=== PATIENT | female | born 1955 | race Caucasian/White ===

== ENCOUNTER 2020-08-01 15:37 | Outpatient (CLI) | payer OTHER, SELFPAY ==
--- NOTE | ~2020-08-01 | MM_ITS ---
EXAMINATION: MM screening bethanie BI w lillie HISTORY: Screening mammogram TECHNIQUE: Craniocaudal and mediolateral oblique 3-D tomosynthesis images were obtained and synthetic 2-D images were generated. Bilateral rotated lateral cc views. CAD analysis was submitted and interp reted. COMPARISON: 08/28/2019, 07/19/2018, 07/01/2017 bilateral digital screening mammogram examinations BREAST PARENCHYMAL COMPOSITION: The breasts are heterogeneously dense, which may obscure small masses . FINDINGS: Bilateral benign calcifications. There is no evidence of suspicious mass, calcification, or architectural distortion to suggest malignancy in either breast. There has been no suspicious interv al change. IMPRESSION: 1. No mammographic evidence of malignancy. 2. Recommend routine screening mammography in one year. BI-RADS Category 2: Benign finding(s). Reviewed, dictated and finalized at location A. RESPIRATORY
== END 2020-08-01 15:38 | disposition home or self-care (01) ==
PROVIDERS: PCP Family Medicine Adolescent Medicine; Visit Provider Family Medicine Adolescent Medicine
DX: Z12.31 Encounter for screening mammogram for malignant neoplasm of breast (principal)
CPT/HCPCS: 77063; 77067

== ENCOUNTER 2020-11-15 07:26 | Outpatient (CLI) | payer OTHER, MEDICARE, SELFPAY ==
--- NOTE | ~2020-11-15 | XR_ITS ---
EXAMINATION: XR hand LT 2V DATE: 11/15/2020 07:48 INDICATION: Left hand pain at the base of the thumb. TECHNIQUE: 2 views of left hand were obtained. COMPARISON: None. FINDINGS: Bone alignment is normal. No fracture. There is mild osteoarthritis of first carpometacarpa l joint, second proximal interphalangeal joint, and second, third, and fifth distal interphalangeal j oints. IMPRESSION: 1. Mild polyarticular osteoarthritis. Reviewed, dictated and finalized at location A.
== END 2020-11-15 07:27 | disposition home or self-care (01) ==
LOC: ANHIMG 07:33
PROVIDERS: PCP Family Medicine Adolescent Medicine; Visit Provider Family Medicine Adolescent Medicine
DX: M19.042 Primary osteoarthritis, left hand (principal)
CPT/HCPCS: 73120

== ENCOUNTER 2021-03-12 16:24 | Observation (INO) | payer OTHER, MEDICARE, SELFPAY ==
[2021-03-12] VITALS (26 sets, daily range): BP systolic 112–182; BP diastolic 63–110; PULSE 58–97; RESP 10–20; TEMP 36.5–36.8; O2SAT 95–99; BMI 22.5
--- NOTE | ~2021-03-12 | XR_ITS ---
EXAMINATION: XR chest 2V DATE: 03/12/2021 16:59 INDICATION: Midsternal chest pain. Hypertension. TECHNIQUE: PA and lateral views of the chest were obtained. COMPARISON: None FINDINGS: The lungs are clear with no focal airspace opacities, pulmonary edema, pleural effusion or pneumothor ax. The cardiomediastinal silhouette is normal. Mild to moderate thoracic spondylosis with chronic ap pearing minimal to mild anterior wedging of a few mid thoracic vertebral bodies. IMPRESSION: 1. No acute cardiopulmonary disease. Reviewed, dictated and finalized at location A.
--- NOTE | 2021-03-12 16:26 | ECG_ITS ---
Measurements Intervals [place] Rate: 87 P: 70 VT: 150 QRS: 30 QRSD: 76 T: 36 QT: 351 QTc: 424 Interpretive Statements SINUS RHYTHM POSSIBLE RIGHT ATRIAL ENLARGEMENT LEFT ATRIAL ENLARGEMENT INCOMPLETE RIGHT BUNDLE BRANCH BLOCK ST ABNORMALITY IN ANTEROLAT/INF LEADS- CONSIDER ISCHEMIA ABNORMAL ECG Electronically Signed On 03-12-2021 21:09:09 CDT by Gilmar Moreau D.O.
[2021-03-12 16:56] LABS: Basophils Percent Auto 0.2 % (0.2-1.2); Eosinophils Absolute Auto 0.2 K/mm3 (0-0.3); Eosinophils Percent Auto 1.5 % (0-4.4); Hematocrit 38.9 % (37.0-47.0); Hemoglobin 13.1 g/dL (12.0-15.0); Immature Granulocyte Absolute 0.03 K/mm3 (0.00-0.031); Immature Granulocyte Percent A 0.3 % (0-0.5); Lymphocytes Absolute Auto 2.23 K/mm3 (0.9-3.2); Lymphocytes Percent Auto 22.9 % (18.3-44.2); Mean Corpuscular HGB Conc 33.7 g/dl (32-36); Mean Corpuscular Hemoglobin 29.8 pg (26-34); Mean Corpuscular Volume 88.4 fl (80-100); Mean Platelet Volume 11.2 fl (7.4-10.4); Monocytes Absolute Auto 0.7 K/mm3 (0.1-0.6); Monocytes Percent Auto 7.1 % (2.6-8.5); Neutrophils Absolute Auto 6.6 K/mm3 (1.3-6.7); Platelet Count Result 294 k/mm3 (150-375); Red Cell Distribution Width 12.4 % (11.5-14.5); White Blood Count 9.7 K/mm3 (4.5-10.0)
[2021-03-12 17:05] LABS: Anion Gap 11 mmol/L (8-16); Blood Urea Nitrogen 18 mg/dL (7-17); Calcium 11.3 mg/dL (8.4-10.2); Carbon Dioxide 26 mmol/L (22-30); Chloride 103 mmol/L (98-107); Estimated CRCL calculation 53 ml/min; Estimated Glomerular Filt Rate > 60; Glucose 116 mg/dL (65-105); Potassium 3.8 mmol/L (3.4-5.0); Sodium 140 mmol/L (137-145)
[2021-03-12 17:17] LABS: Troponin I < 0.012 ng/mL (0.000-0.034)
[2021-03-12] MEDS: ASPIRIN 81 MG CHEWABLE TABLET 324 MG PO (17:21)
[2021-03-12] MEDS: METOPROLOL TARTRATE INJ 5 MG/5 ML VIAL IV PUSH (17:21)
--- NOTE | 2021-03-12 17:27 | ED.CHESTPAIN ---
HPI - Chest Pain General Chief Complaint: Chest Pain Stated Complaint: HEARTBURN, ELEVATED BP Time Seen by Provider: 03/12/21 16:31 Source: patient Mode of arrival: ambulatory Limitations: no limitations History of Present Illness HPI narrative: 65-year-old with a H/O of Hyperlipidemia ,HTN but not on any medication here with complaints of midsternal heartburn for past few days. She states is episodic in nature. Patient states that she has taken Tums with minimal relief. She denies any shortness of breath, nausea or vomiting. No previous history of any coronary artery disease. Never had a stress test. complaint: chest pain Onset (ago): day(s) (3) Timing of current episode: episodic Onset: during rest Pain location: substernal Pain radiation: none Severity: moderate Quality: burning Relieving factors: nothing Exacerbating factors: nothing Risk Factors Coronary artery disease risk factors: none Related Data Home Medications Medication Instructions Recorded Confirmed alprazolam 0.5 mg tablet 0.5 mg PO DAILY 12/03/20 12/03/20 atorvastatin 20 mg tablet 20 mg PO DAILY 12/03/20 12/03/20 calcium carbonate 600 mg calcium 600 mg PO BID 12/03/20 12/03/20 (1,500 mg) tablet multivitamin with minerals-folic tablet PO 12/03/20 12/03/20 acid 0.4 mg tablet Allergies Allergy/AdvReac Type Severity Reaction Status Date / Time No Known Allergies Allergy Verified 03/12/21 16:38 Review of Systems Review of Systems: All systems reviewed & are unremarkable except as noted in HPI and below Constitutional: Constitutional: Reports no additional constitutional complaints Eyes: Eyes: Reports no additional eye complaints ENT: Reports system reviewed and no additional complaints, except as documented Cardiovascular: Cardiovascular: Reports as per HPI Respiratory: Respiratory: Reports no additional respiratory complaints Gastrointestinal: Gastrointestinal: Reports no additional gastrointestinal complaints Musculoskeletal: Musculoskeletal: Reports no additional musculoskeletal complaints Neurologic: Reports system reviewed and no additional complaints, except as documented Psychiatric: Psychiatric: Reports no additional psychiatric complaints [facility] Past Medical History Medical History Anxiety Arthritis Arthritis of carpometacarpal (CMC) joint of left thumb Surgical History Surgical History H/O: hysterectomy Family History Family History Mother Family history of amyotrophic lateral sclerosis Sibling Breast cancer Hypertension Cerebrovascular accident Father Hypertension Social History Social History Smoking status: Never smoker Alcohol intake: current Additional occupation/education comments: [employer] Gender identity (if verbalized by the patient): Female Exam Narrative: Exam Narrative: GENERAL: Well-appearing, well-nourished, and in no acute distress. HEAD: Normocephalic, atraumatic. EYES: PERRLA and EOMI. NECK: Supple. CHEST: Clear to auscultation. No respiratory distress. HEART: Regular rate and rhythm. No murmur heard. Normal peripheral pulses. ABDOMEN: Soft, nontender, nondistended, normal active bowel sounds. EXTREMITIES: Normal range of motion. No edema. SKIN: Warm, dry, no rash. NEURO: No focal deficits. Alert and oriented x3. PSYCH: Normal mood and affect. Course Course Emergency Course: Patient presently not having pain at this time. I discussed lab work with the patient and the family will admit to the hospital for further work-up. Vital Signs Vital signs: Vital Signs Temperature 36.7 C 03/12/21 16:28 Pulse Rate 97 03/12/21 16:28 Respiratory Rate 14 03/12/21 16:28 Blood Pressure 173/89 H 03/12/21 16:28 Pulse Oximetry 99 03/12/21 16:28
[2021-03-12 17:40] LABS: Prothrombin Time 12.7 Seconds (11.1-14.7)
[2021-03-12 17:42] LABS: Partial Thromboplastin Time 26.7 SECONDS (22.3-36.8)
[2021-03-12] MEDS: ENOXAPARIN 80 MG/0.8 ML SYRINGE 65 MG SUB-Q (18:18)
[2021-03-12] MEDS: NITROGLYCERIN OINTMENT 1 INCH DOSE TRANSDERM (18:18)
[2021-03-12 20:05] LABS: Troponin I < 0.012 ng/mL (0.000-0.034)
--- NOTE | 2021-03-12 21:00 | PM.IMHP ---
H&P: HPI History of Present Illness Date/Time: 03/12/21 21:00 <Deya Jensen PA-C - Last Filed: 03/12/21 23:02> Chief Complaint: Chest pain. <Deya Jensen PA-C - Last Filed: 03/12/21 23:02> Narrative: This is a pleasant 65-year-old female with hyperlipidemia and GERD who presented to the emergency department earlier today via private vehicle from home for evaluation of chest pain. Yesterday at lunch she started to experience what she thought was heartburn, describing tightness in the mid chest region and burning up into the jaw. She took Tums and it seemed to improve within a couple of minutes. Not long thereafter she felt as though her blood pressure was high and she went to [employer] [facility] where her blood pressure was 182/80. She then left work a bit early and went home to rest. Throughout the evening she monitored her blood pressure and it was near normal by bedtime. This morning her blood pressures was 137/80 and she felt okay when she came in to work. Throughout the morning she had intermittent episodes of what she calls heartburn but again she describes midsternal chest tightness with some burning radiation up into the jaw. She has been taking Tums every 3 hours since yesterday for these symptoms and admits that she probably took more than what is suggested this afternoon due to her symptoms. By the time she got home this afternoon her symptoms were pretty severe and she checked her blood pressure which was once again high thus she came in to the ER for evaluation. Since arrival to the hospital her blood pressures have been in the 150s to 180s systolic but she denies history of hypertension. Two years ago she had a similar episode where her blood pressures spiked for a week or so before returning back to normal. She has had 2 negative troponins thus far however her EKG is concerning for ischemia with ST abnormalities in the anterior lateral and inferior leads. She was started on nitro paste in the emergency department and her symptoms have been essentially absent aside from a brief minute of tightness this evening. She has never had similar symptoms in the past and fact she is quite healthy and very active, walking 2 miles most days of the week without ever having chest pain or shortness of breath. She denies headache, syncope, near syncope, exertional chest pain, shortness of breath, nausea, vomiting, and sweats. She has no known history of coronary artery disease and has never had a stress test. <Deya Jensen PA-C - Last Filed: 03/12/21 23:02> Review of Systems Review of Systems: Narrative: 12 systems were reviewed with pertinent positives and negatives as per HPI. No fever, chills, or sweats. No recent cold or flu symptoms. She has vaccinated for COVID-19. He typically does not get heartburn very often. She has not had issues with dysphagia however felt like she was having a difficult time swallowing the turkey sandwich she had for dinner tonight. No concerns for aspiration. No orthopnea, PND, or lower extremity edema. She has had normal bowel movements. No recent change in stressed. She does not take supplements. She avoids caffeine. Except as documented, all other systems were reviewed and are negative. <Deya Jensen PA-C - Last Filed: 03/12/21 23:02> [facility] Past Medical History Medical History: Medical History Anxiety Arthritis Dyslipidemia Gastroesophageal reflux disease <Deya Jensen PA-C - Last Filed: 03/12/21 23:02> Surgical History Surgical History: Surgical History History of hysterectomy History of tubal ligation <Deya Jensen PA-C - Last Filed: 03/12/21 23:02> Family History Family History: Family History Mother Family history of amyotrophic lateral sclerosis Sibling Breast cancer Hypertensio
[2021-03-12 23:09] LABS: Troponin I < 0.012 ng/mL (0.000-0.034)
[2021-03-13] VITALS (11 sets, daily range): BP systolic 109–142; BP diastolic 63–79; PULSE 60–75; RESP 12–16; TEMP 36.4–36.9; O2SAT 96–100
--- NOTE | 2021-03-13 01:08 | ADMGEN ---
This patient, Aretha Peralta, was admitted to IMU Room 207-01. Patient/family oriented to hospital policies and general routines including ID bracelet, bed and alarms, visiting hours, pain management, procedures, bathroom and other care routines, personal items, smoking policy, room service/diet, and visiting hours. Information on how to activate the Rapid Response Team has been discussed. Patient/Family are encouraged to report perceived risks to care and to ask questions if they do not understand what they are told or what they should do. 03/13/2021 1900
[2021-03-13 05:13] LABS: Hematocrit 38.8 % (37.0-47.0); Hemoglobin 12.5 g/dL (12.0-15.0); Mean Corpuscular HGB Conc 32.2 g/dl (32-36); Mean Corpuscular Hemoglobin 29.7 pg (26-34); Mean Corpuscular Volume 92.2 fl (80-100); Mean Platelet Volume 11.2 fl (7.4-10.4); Platelet Count Result 246 k/mm3 (150-375); Red Blood Count 4.21 M/mm3 (4.2-5.4); Red Cell Distribution Width 12.7 % (11.5-14.5); White Blood Count 8.3 K/mm3 (4.5-10.0)
[2021-03-13 05:29] LABS: Alanine Aminotransferase 36 U/L (4-35); Albumin Level 4.4 g/dL (3.5-5.1); Alkaline Phosphatase 73 U/L (38-126); Anion Gap 9 mmol/L (8-16); Aspartate Amino Transferase 33 U/L (14-36); Bilirubin,Total 0.6 mg/dL (0.2-1.3); Blood Urea Nitrogen 15 mg/dL (7-17); Carbon Dioxide 30 mmol/L (22-30); Chloride 104 mmol/L (98-107); Cholesterol 145 mg/dL (0-200); Estimated CRCL calculation 48 ml/min; Estimated Glomerular Filt Rate > 60; Glucose 87 mg/dL (65-105); HDL Direct 51 mg/dL; Magnesium 1.8 mg/dL (1.6-2.3); Sodium 143 mmol/L (137-145); Triglycerides 104 mg/dL (<150)
[2021-03-13 05:40] LABS: LDL Cholesterol Direct 62 mg/dL
[2021-03-13] MEDS: METOPROLOL TARTRATE 25 MG TABLET PO (08:27)
[2021-03-13] MEDS: ASPIRIN 81 MG CHEWABLE TABLET PO (08:27)
--- NOTE | 2021-03-13 09:16 | PM.CNCAR ---
Assessment and Plan Additional Plan 1- chest pain. 2- abnormal EKG. 3- uncontrolled hypertension. this 65-year-old female who presents to the hospital with chest pain. Blood pressure is elevated on admission. She does not take blood pressure medications at home. Her EKG shows ST depression inferior and lateral leads suggestive of ischemia. Troponins negative. Recommend a Lexiscan stress test to rule out ischemia.. Recommend to start low-dose losartan 25 mg daily to treat hypertension. ask patient to keep blood pressure log. History of Present Illness History of Present Illness Consult date/time: Date of service: 03/13/21 09:16 Requesting physician: Hamzah Silveira MD Consult reason: chest pain Reason For Visit: Unstable Angina Narrative: This 65-year-old female with past medical history of hyperlipidemia. blood pressure is elevated in admissions 160s to 170s systolic. she presents to the hospital because of 24 hours feeling of severe Central chest heart burn, shakiness. she was taking Tums without relief. could not sit down. denies shortness of breath, limb edema, dizziness, syncope. Her blood pressures were elevated. She denies recent stress, salty food intake. denies orthopnea or paroxysmal nocturnal dyspnea. she states that for the last 3 months she has been getting intermittent heartburn with no aggravating or relieving factor. in the past she was evaluated for hypertension and blood pressures were slightly elevated but then upon following blood pressure her blood pressure was normal and did not require medications. she reports her brother who is age 60 had myocardial infarction. Never smoke cigarettes and does not drink alcohol. serum creatinine 0.9, troponins x3 negative, EKG reviewed and as myself shows sinus rhythm, ST depressions inferior and lateral leads. Chest x-ray Interpreted and reviewed myself looks unremarkable. Review of Systems Constitutional: Constitutional: Denies chills, Denies fever(s) and Denies poor appetite Eyes: Eyes: Denies eye discharge, Denies loss of vision, Denies eye pain and Denies photophobia ENT: Denies dizziness, Denies epistaxis, Denies nasal congestion and Denies sore throat Cardiovascular: Cardiovascular: Reports chest pain, Denies syncope, Denies pedal edema, Denies leg edema, Denies palpitations, Denies dyspnea, Denies dyspnea on exertion and Denies orthopnea Respiratory: Respiratory: Denies cough, Denies dyspnea, Denies dyspnea on exertion and Denies wheezing Gastrointestinal: Gastrointestinal: Denies abdominal pain, Denies diarrhea, Denies nausea and Denies vomiting Genitourinary: Genitourinary: Denies hematuria, Denies genital lesions and Denies dysuria Musculoskeletal: Musculoskeletal: Denies arthralgias, Denies joint swelling and Denies numbness Integumentary/Breasts: Skin/Breast: Denies pruritus and Denies rash Neurologic: Denies dizziness, Denies syncope, Denies loss of vision and Denies numbness Psychiatric: Psychiatric: Denies anxiety and Denies depression Endocrine: Endocrine: Denies cold intolerance, Denies heat intolerance and Denies palpitations Hematologic/Lymphatic: Hematologic/Lymphatic: Denies easy bleeding and Denies easy bruising Allergic/Immunologic: Allergic/Immunologic: Denies urticaria and Denies wheezing PMFSH Past Medical History Medical History Anxiety Arthritis Dyslipidemia Gastroesophageal reflux disease Surgical History Surgical History History of hysterectomy History of tubal ligation Family History Family History Mother Family history of amyotrophic lateral sclerosis Sibling Breast cancer Hypertension Cerebrovascular accident Father Hypertension Sibling Acute myocardial infarction, Onset Age: 60 Social History Social History (Reviewed 03/13/21 @
[2021-03-13] MEDS: LOSARTAN POTASSIUM 12.5 MG TABLET PO (11:46)
--- NOTE | 2021-03-13 14:55 | PM.DS ---
DS: Admitting Diagnosis Admitting Diagnosis Admitting Diagnosis: chest pain DS: Discharge Diagnosis Discharge Diagnosis (1) Gastroesophageal reflux disease: Code(s): K21.9 - Gastro-esophageal reflux disease without esophagitis Status: Acute (2) Hypercalcemia: Code(s): E83.52 - Hypercalcemia Status: Acute (3) Chest pain: Code(s): R07.9 - Chest pain, unspecified Status: Acute (4) Dyslipidemia: Code(s): E78.5 - Hyperlipidemia, unspecified Status: Acute (5) Abnormal EKG: Code(s): R94.31 - Abnormal electrocardiogram [ECG] [EKG] Status: Acute (6) Hypertension: Code(s): I10 - Essential (primary) hypertension Status: Acute DS: Summary Hospital Course Hospital Course: This is a pleasant 65-year-old female with hyperlipidemia and GERD who presented to the emergency department earlier today via private vehicle from home for evaluation of chest pain. Yesterday at lunch she started to experience what she thought was heartburn, describing tightness in the mid chest region and burning up into the jaw. She took Tums and it seemed to improve within a couple of minutes. Not long thereafter she felt as though her blood pressure was high and she went to [facility] where her blood pressure was 182/80. She then left work a bit early and went home to rest. Throughout the evening she monitored her blood pressure and it was near normal by bedtime. This morning her blood pressures was 137/80 and she felt okay when she came in to work. Throughout the morning she had intermittent episodes of what she calls heartburn but again she describes midsternal chest tightness with some burning radiation up into the jaw. She has been taking Tums every 3 hours since yesterday for these symptoms and admits that she probably took more than what is suggested this afternoon due to her symptoms. By the time she got home this afternoon her symptoms were pretty severe and she checked her blood pressure which was once again high thus she came in to the ER for evaluation. Since arrival to the hospital her blood pressures have been in the 150s to 180s systolic but she denies history of hypertension. Two years ago she had a similar episode where her blood pressures spiked for a week or so before returning back to normal. She has had 2 negative troponins thus far however her EKG is concerning for ischemia with ST abnormalities in the anterior lateral and inferior leads. She was started on nitro paste in the emergency department and her symptoms have been essentially absent. She has never had similar symptoms in the past and fact she is quite healthy and very active, walking 2 miles most days of the week without ever having chest pain or shortness of breath. She denies headache, syncope, near syncope, exertional chest pain, shortness of breath, nausea, vomiting, and sweats. She has no known history of coronary artery disease and has never had a stress test. she was admitted for further evaluation and cardiology consultation. Serial troponins were done which came back negative. Chest x-ray was negative for any acute cardiopulmonary disease. She was evaluated by Cardiology and suggested starting a low-dose losartan 12.5 mg for hypertension. She was advised to get a Lexiscan stress test which could be done as an outpatient basis and hands was released by the Cardiology to go home with planned to perform a stress test as an outpatient basis. She was given losartan 12.5 mg during the hospital stay and her blood pressure remained stable. She is advised to watch her blood pressure at home and make a log. She will follow-up with primary care as well as cardiology as planned. For her GERD which has been an ongoing issue I have advised her to start Pepcid once a day. Status at Discharge Functional status at discharge: independent ambulation Overall status at discharge: patient is back to baseline Time Spent with Patient Ti
== END 2021-03-13 17:36 | disposition home or self-care (01) ==
LOC: ANHED 17:40 → ANHIMU 18:34
PROVIDERS: Emergency Medicine; Physician Assistant; Admitting Provider Internal Medicine; Emergency Provider Family Medicine; PCP Family Medicine Adolescent Medicine; Visit Provider Internal Medicine
DX: K21.9 Gastro-esophageal reflux disease without esophagitis (principal); E83.52 Hypercalcemia; R07.9 Chest pain, unspecified; E78.5 Hyperlipidemia, unspecified; R94.31 Abnormal electrocardiogram [ECG] [EKG]; I10 Essential (primary) hypertension; F41.9 Anxiety disorder, unspecified; Z87.891 Personal history of nicotine dependence
CPT/HCPCS: 36415; 71046; 80048; 80053; 80061; 83735; 84484; 85025; 85027; 85610; 85730; 93005; 96372; 96374; 99285; A9270; G0378; J1650

== ENCOUNTER 2021-03-21 10:04 | Outpatient (CLI) | payer OTHER, MEDICARE, SELFPAY ==
--- NOTE | 2021-03-21 | EST_ITS ---
Patient Info Name: Aretha Peralta Age: 65 years : 1955 Gender: Female Ht: 64 in Wt: 140 lbs BSA: 1.70 m2 Exam Date: 03/21/2021 11:17 AM Exam Location: [facility] Stress Patient Status: Outpatient Admit Date: 03/21/2021 Staff Ordering Physician: Sandie Westbrook Attending Provider: Sandie Westbrook Exercise Technologist: Tiffanie Hernandez RDCS Exercise Physician: Gilmar Moreau DO Exam Type: CA stress santos w NM Study Info Indications R07.9 - Chest pain, unspecified A regadenoson stress test was performed. Summary 1. 1. Negative lexiscan stress test for ischemic ST changes by ECG criteria. 2. 2. Baseline hypertension. 3. 3. Nuclear scan to follow and will be reported separately. Please correlate with it. 4. 4. Patient informed of the above results. Protocol: Lexiscan Stress ECG Details Stage: REST Duration (min): 16 min : 42 sec HR (bpm): 65 SBP (mmHg): 146 DBP (mmHg): 81 Stage: REST Duration (min): 21 min : 31 sec HR (bpm): 69 SBP (mmHg): 146 DBP (mmHg): 81 Stage: STAGE 1 Duration (min): 1 min : 0 sec HR (bpm): 100 SBP (mmHg): 147 DBP (mmHg): 92 Stage: RECOVERY Duration (min): 1 min : 0 sec HR (bpm): 116 SBP (mmHg): 164 DBP (mmHg): 91 Stage: RECOVERY Duration (min): 2 min : 0 sec HR (bpm): 108 SBP (mmHg): 164 DBP (mmHg): 91 Stage: RECOVERY Duration (min): 3 min : 0 sec HR (bpm): 101 SBP (mmHg): 141 DBP (mmHg): 86 Stage: RECOVERY Duration (min): 4 min : 0 sec HR (bpm): 100 SBP (mmHg): 141 DBP (mmHg): 86 Stage: RECOVERY Duration (min): 5 min : 0 sec HR (bpm): 97 SBP (mmHg): 118 DBP (mmHg): 84 Stage: RECOVERY Duration (min): 6 min : 0 sec HR (bpm): 88 SBP (mmHg): 118 DBP (mmHg): 84 Stage: RECOVERY Duration (min): 7 min : 0 sec HR (bpm): 88 SBP (mmHg): 117 DBP (mmHg): 79 Stage: RECOVERY Duration (min): 8 min : 0 sec HR (bpm): 84 SBP (mmHg): 117 DBP (mmHg): 79 Stage: RECOVERY Duration (min): 8 min : 46 sec HR (bpm): 93 SBP (mmHg): 125 DBP (mmHg): 76 Rest HR: 69 bpm Peak HR: 119 bpm Rest Sys BP: 146 mmHg Peak Sys BP: 164 mmHg Max Pred HR: 153 bpm % Max Pred HR: 78 % Target HR: 130 bpm Max RPP: 19,516 bpm*mmHg Termination Reason: Completed protocol Cardiac Symptoms: Shortness of breath Total Time: 1 min : 0 sec Rest Samano BP: 81 mmHg Peak Samano BP: 91 mmHg Total Dose: 0.4 mg Resting ECG Sinus rhythm. Stress ECG Borderline ST abnormality in anterolat/inf leads. Arrhythmias None. Report Signatures
--- NOTE | ~2021-03-21 | NM_ITS ---
EXAMINATION: NM santos stress w perfusion DATE: 03/21/2021 12:42 INDICATION: Acute chest pain TECHNIQUE: Rest images were obtained following intravenous administration of 9.5 mCi Tc99m tetrofosmi n (Myoview). The patient was infused intravenously with Lexiscan (Regadenoson). Then, 28.8 mCi Tc99m tetrofosmin (Myoview) was administered intravenously, and stress images were obtained. Data was recon structed into short axis and horizontal and vertical long axis SPECT images. Gated SPECT images were also obtained. COMPARISON: None. FINDINGS: There is no definite reversible or fixed perfusion abnormality to suggest ischemia or infar ction. There is normal left ventricular chamber size, wall motion and ejection fraction. Left ventr icular ejection fraction measures >70%. IMPRESSION: 1. Normal myocardial perfusion at rest and during stress. 2. Left ventricular ejection fraction measuring >70%. Reviewed, dictated and finalized at location A.
--- NOTE | 2021-03-21 11:56 | PCCARD ---
YANELY STRESS TEST PERFORMED BY DR. YAO PER [facility] . DR. JEFFERSON WAS IN A PROCEDURE AND NO OTHER HEART CARE GROUP DOCTOR WAS AVAILABLE TO PERFORM PATIENTS STRESS TEST.
== END 2021-03-21 10:05 | disposition home or self-care (01) ==
PROVIDERS: PCP Family Medicine Adolescent Medicine; Visit Provider Nurse Practitioner
DX: R07.9 Chest pain, unspecified (principal)
CPT/HCPCS: 78452; 93017; A9502; J2785

== ENCOUNTER 2021-09-04 16:08 | Outpatient (CLI) | payer OTHER, SELFPAY ==
--- NOTE | ~2021-09-04 | MM_ITS ---
EXAMINATION: MM screening bethanei BI w lillie HISTORY: Screening mammogram, family history of breast cancer in her sister. TECHNIQUE: Craniocaudal and mediolateral oblique 3-D tomosynthesis images were obtained and synthetic 2-D images were generated. CAD analysis was submitted and interpreted. COMPARISON: 08/01/2020, 08/01/2019, 07/19/2018 BREAST PARENCHYMAL COMPOSITION: The breasts are heterogeneously dense, which may obscure small masses . FINDINGS: Scattered benign-appearing calcifications are present. There is no evidence of suspicious m ass, calcification, or architectural distortion to suggest malignancy in either breast. There has bee n no suspicious interval change. IMPRESSION: 1. No mammographic evidence of malignancy. 2. Recommend routine screening mammography in one year. BI-RADS Category 2: Benign finding(s). Reviewed, dictated and finalized at location A. CAL INSTRUMENT SUPERVISOR
== END 2021-09-04 16:09 | disposition home or self-care (01) ==
LOC: ANHIMG 16:12
PROVIDERS: PCP Family Medicine Adolescent Medicine; Visit Provider Family Medicine Adolescent Medicine
DX: Z12.31 Encounter for screening mammogram for malignant neoplasm of breast (principal)
CPT/HCPCS: 77063; 77067

== ENCOUNTER 2022-10-21 16:33 | Outpatient (CLI) | payer OTHER, SELFPAY ==
--- NOTE | ~2022-10-21 | MM_ITS ---
EXAMINATION: MM screening bethanie BI w lillie HISTORY: Screening mammogram TECHNIQUE: Craniocaudal and mediolateral oblique 3-D tomosynthesis images were obtained and synthetic 2-D images were generated. CAD analysis was submitted and interpreted. COMPARISON: 09/04/2021, 08/01/2020, 08/01/2019 bilateral screening mammogram examinations BREAST PARENCHYMAL COMPOSITION: The breasts are heterogeneously dense, which may obscure small masses . FINDINGS: Scattered benign calcifications are again noted. There is no evidence of suspicious mass, c alcification, or architectural distortion to suggest malignancy in either breast. There has been no s uspicious interval change. IMPRESSION: 1. No mammographic evidence of malignancy. 2. Recommend routine screening mammography in one year. BI-RADS Category 2: Benign finding(s). Reviewed, dictated and finalized at location A. TAMP OPERATOR
== END 2022-10-21 16:34 | disposition home or self-care (01) ==
LOC: ANHIMG 16:37
PROVIDERS: PCP Family Medicine Adolescent Medicine; Visit Provider Family Medicine Adolescent Medicine
DX: Z12.31 Encounter for screening mammogram for malignant neoplasm of breast (principal)
CPT/HCPCS: 77063; 77067

== ENCOUNTER → 2023-06-01 11:13 | Outpatient (CLI) | payer OTHER, SELFPAY ==
--- NOTE | ~2023-06-01 | XR_ITS ---
EXAMINATION: XR lumbar spine 2-3V DATE: 06/01/2023 11:36 INDICATION: Bilateral low back pain. TECHNIQUE: 3 views of lumbar spine were obtained. COMPARISON: Lumbar spine radiograph 02/13/2010 FINDINGS: There is 18 degrees levoscoliosis of lumbar spine. There is 3 mm retrolisthesis of L2 on L3 . Vertebral body heights are normal. There is severely decreased disc height at L2-L3, mildly decreas ed disc height at L3-L4 and L4-L5, and moderately decreased disc height at L5-S1. There is multilevel facet joint osteoarthritis, severe at multiple levels. IMPRESSION: 1. Severe lumbar spondylosis. 2. Lumbar levoscoliosis. Reviewed, dictated and finalized at location E.
== END ==
PROVIDERS: PCP Family Medicine Adolescent Medicine; Visit Provider Family Medicine Adolescent Medicine
DX: M47.896 Other spondylosis, lumbar region (principal)
CPT/HCPCS: 72100

== ENCOUNTER 2023-11-19 11:16 | Outpatient (CLI) | payer OTHER, SELFPAY ==
--- NOTE | ~2023-11-19 | MM_ITS ---
EXAMINATION: MM screening bethanie BI w lillie HISTORY: Screening TECHNIQUE: Craniocaudal and mediolateral oblique 3-D tomosynthesis images were obtained and synthetic 2-D images were generated. CAD analysis was submitted and interpreted. COMPARISON: Comparison to multiple prior studies sequentially, with oldest reviewed study dated 09/2016. BREAST PARENCHYMAL COMPOSITION: Not dense: There are scattered areas of fibroglandular density. FINDINGS: There is no evidence of suspicious mass, calcification, or architectural distortion to sugg est malignancy in either breast. There has been no suspicious interval change. IMPRESSION: 1. No mammographic evidence of malignancy. 2. Recommend routine screening mammography in one year. BI-RADS Category 1: Negative Reviewed, dictated and finalized at location A.
== END 2023-11-19 11:17 ==
LOC: MICIMG 11:16
PROVIDERS: PCP Family Medicine Adolescent Medicine; Visit Provider Family Medicine Adolescent Medicine
DX: Z12.31 Encounter for screening mammogram for malignant neoplasm of breast (principal)
CPT/HCPCS: 77063; 77067

== ENCOUNTER 2025-01-04 13:24 | Outpatient (CLI) | payer OTHER, SELFPAY ==
--- NOTE | ~2025-01-04 | MM_ITS ---
EXAMINATION: MM screening bethanie BI w lillie HISTORY: Screening TECHNIQUE: Craniocaudal and mediolateral oblique 3-D tomosynthesis images were obtained and synthetic 2-D images were generated. CAD analysis was submitted and interpreted. COMPARISON: Comparison to multiple prior studies sequentially, with oldest reviewed study dated 07/01. BREAST PARENCHYMAL COMPOSITION: Dense: The breasts are heterogeneously dense, which may obscure small masses FINDINGS: There is no evidence of suspicious mass, calcification, or architectural distortion to sugg est malignancy in either breast. There has been no suspicious interval change. IMPRESSION: 1. No mammographic evidence of malignancy. 2. Recommend routine screening mammography in one year. BI-RADS Category 1: Negative Reviewed, dictated and finalized at location A.
== END 2025-01-04 13:25 | disposition home or self-care (01) ==
LOC: MICIMG 13:25
PROVIDERS: PCP Family Medicine Adolescent Medicine; Visit Provider Nurse Practitioner Family
DX: Z12.31 Encounter for screening mammogram for malignant neoplasm of breast (principal)
CPT/HCPCS: 77063; 77067

== ENCOUNTER 2025-03-28 13:44 | Outpatient (CLI) | payer OTHER, SELFPAY ==
--- NOTE | ~2025-03-28 | DEXA_ITS ---
Bone Density Report Name: HELDER PETE Age: 69 Sex: Female Ethnicity: White Date of : 1955 Indication: monitoring treatment; height loss; hysterectomy; Referring Provider: LAMAR ORTIZ Study: Bone densitometry was performed. Exam Date: March 28, 2025 Accession number: [id number] Bone Density: Region BMD T-score Z-score Classification AP Spine(L1-L4) 1.229 1.7 3.8 Normal Femoral Neck (Left) 0.665 -1.7 0.2 Osteopenia Total Hip (Left) 0.887 -0.5 1.1 Normal Femoral Neck (Right) 0.714 -1.2 0.7 Osteopenia Total Hip (Right) 0.885 -0.5 1.1 Normal Total Hip Mean 0.886 -0.5 1.1 Normal World Health Organization criteria for BMD impression classify patients as: Normal (T-score at or above -1.0), Osteopenia (T-score between -1.0 and -2.5), or Osteoporosis (T-score at or below -2.5). 10-year Fracture Risk: FRAX not reported because: Treated for osteoporosis Previous Exams: Region Exam Age BMD T-score BMD Change BMD Change Date g/cm2 vs Baseline vs Previous Total Hip(Left) 03/28/2025 69 0.887 -0.5 0.002 (0.3%) 0.002 (0.3%) 03/08/2018 62 0.884 -0.5 Total Hip(Right) 03/28/2025 69 0.885 -0.5 -0.053 (-5.7%) -0.053 (-5.7%) 03/08/2018 62 0.939 0.0 *Denotes significance at 95% confidence level, LSC for Total Hip = 0.027 g/cm2 Clinical Information Provided by Patient: Is being treated for osteoporosis Has used the following medications: Fosamax (i.e. alendronate), Calcium Has the following medical conditions: Hysterectomy Patient maximum height was 65 Menopause Age: 47 Onset of menses at age 10 Number of children 2 Impression: The patient has low bone mass, based on the Left Femoral Neck T-score. The BMD for the Total Hip(Right) decreased, changing by -5.7% since the last DXA exam. Discussion: SIGNIFICANT BONE LOSS OBSERVED. Adherence to therapy (including calcium and vitamin D intake) should be assessed. If compliance is not a factor, review management and exclusion of secondary causes of bone loss. It is important to ask patients whether they are taking their medications and to encourage continued and appropriate compliance with their osteoporosis therapies to reduce fracture risk. It is also important to review their risk factors and encourage appropriate calcium and vitamin D intakes, exercise, fall prevention and other lifestyle measures. Follow-Up: Consider a repeat BMD and Vertebral Fracture Assessment (VFA) exam in 2 years or sooner if medically necessary, to reassess this patient's status. Reported by: YOSSI on 03/28/2025 2:23:00 PM. Reviewed, dictated and finalized at location A.
--- OUTSIDE RECORDS SUMMARY | 2025-03-28 13:56 | XMS_ITS | Clinical Summary ---
Author Organization [facility] [place] [address] Address [address] [place] [address] Care Team Providers Care Care Worker Name Role Phone Liborio Arteaga MD Primary Care Prov ider Allergies No known active allergies Medications diclofenac DR (VOLTAREN) 75 mg EC tablet 1 Active atorvastatin (LIPITOR) 20 mg tablet 1 Active ALPRAZolam (XANAX) 0.5 mg tablet Take 0.5 mg by mouth 2 (two) times a day as needed 1 Active aspirin 81 mg chewable tablet CHEW AND SWALLOW 1 TABLET BY MOUTH DAILY AT 8 AM 1 Active Acid Controller 20 mg tablet Take 20 mg by mouth daily 1 Active losartan (COZAAR) 25 mg tablet 1 Active [id number] -Lmfolate-algal 27 mg iron-1.13 mg-581.92 mg capsule Take by mouth Active calcium carbonate (OS-PEGGY) 1,500 mg (600 mg of elemental calcium) tablet Take 600 mg of elemental calcium by mouth Active Active Problems Problem Noted Date Diagnosed Date Essential hypertension 03/26/2021 Mixed hyperlipidemia 03/26/2021 Other chest pain 03/26/2021 Abnormal EKG 03/26/2021 Cervicalgia 04/16/2010 Surgical History Surgery Date Site/Laterality Comments HYSTERECTOMY TUBAL LIGATION Medical History Medical History Date Comments Hyperlipidemia GERD (gastroesophageal reflux disease) Family History Medical History Relation Name Comments Hypertension Father Stroke Father ALS Mother sclerosis Mother Breast cancer Sister Relation Name Status Comments Father (Age 67) Mother (Age 62) Sister Alive Son 1 Alive Son 2 Alive Social History Tobacco Use Types Packs/Day Years Used Date Smoking Tobacco: Former Cigarettes Smokeless Tobacco: Never Personal Safety Answer Date Recorded Getting School Help Needed Not on file 10/25 Comments Unknown Sex and Gender Information Value Date Recorded Sex Assigned at Not on file Legal Sex Female 8:42 AM [employer] Gender Identity Not on file Sexual Orientation Not on file Obstetrics History Last Filed Vital Signs Vital Sign Reading Time Taken Comments Blood Pressure 126/78 03/24/2021 12:24 PM CDT Pulse 67 03/24/2021 12:24 PM CDT Temperature - - Respiratory Rate - - Oxygen Saturation 99% 03/24/2021 12:24 PM CDT Inhaled Oxygen Concentration - - Weight 63 kg (138 lb 14.4 oz) 03/24/2021 12:24 P M CDT Height 165.1 cm (5' 5) 03/24/2021 12:24 PM CDT Body Mass Index 23.11 03/24/2021 12:24 PM CDT Plan of Treatment Not on file Insurance [facility] MEDICARE Care Teams Care Worker Relationship Specialty Start Date End Date Liborio Arteaga MD [address] [place] [id number] PCP - General Family Medicine 03/13/21
--- OUTSIDE RECORDS SUMMARY | 2025-03-28 13:56 | XMS_ITS | Referral Summary ---
Author Organization [facility] [place] [address] Address [address] [place] [address] Care Team Providers Care [employer] Name Role Phone Liborio Arteaga MD Primary [...] losartan (COZAAR) 25 mg tablet 1 Active [id number] -Lmfolate-algal 27 mg iron-1.13 mg-581.92 mg capsule Take by mouth Active calcium carbonate (OS-PEGGY) 1,500 mg (600 mg of elemental calcium) tablet Take 600 mg of elemental calcium by mouth Active Active Problems Problem Noted Date Diagnosed Date Essential hypertension 03/26/2021 Mixed hyperlipidemia 03/26/2021 Other chest pain 03/26/2021 Abnormal EKG 03/26/2021 Cervicalgia 04/16/2010 Social History Tobacco Use Types Packs/Day Years Used Date Smoking Tobacco: Former Cigarettes Smokeless Tobacco: Never Personal Safety Answer Date Recorded Getting School Help Needed Not on file 10/25 Comments Unknown Sex and Gender Information Value Date Recorded Sex Assigned at Not on file Legal Sex Female 8:42 AM FIRST [employer] Gender Identity Not on file Sexual Orientation Not on file Last Filed Vital Signs Vital Sign Reading [...] Plan of Treatment Not on file Insurance [facility] MEDICARE Care Teams [employer] Relationship Specialty Start Date End Date Liborio Arteaga MD [address] [place] [address] PCP - General Family Medicine 03/13/21
== END 2025-03-28 13:45 | disposition home or self-care (01) ==
LOC: ANHIMG 13:46
PROVIDERS: PCP Family Medicine Adolescent Medicine; Visit Provider Nurse Practitioner Family
DX: M85.852 Other specified disorders of bone density and structure, left thigh (principal); M85.851 Other specified disorders of bone density and structure, right thigh; Z78.0 Asymptomatic menopausal state
CPT/HCPCS: 77080